=== PATIENT | female | born 1980 | race American Indian/Alaskan Native ===

== ENCOUNTER 2016-08-06 19:56 | Emergency (ER) | payer OTHER, MEDICAID ==
[2016-08-06 20:42] VITALS: BP 108/74
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
[2016-08-06] MEDS ORDERED: NORCO 5/325 PO ONE (23:07)
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
== END 2016-08-07 02:15 | disposition home or self-care (01) ==
LOC: ED 19:56
DX: M54.2 Cervicalgia (principal); R07.89 Other chest pain; R51 Headache; F17.200 Nicotine dependence, unspecified, uncomplicated; V89.2XXA Person injured in unspecified motor-vehicle accident, traffic, initial encounter; Y93.89 Activity, other specified; Y99.9 Unspecified external cause status; Y92.410 Unspecified street and highway as the place of occurrence of the external cause
CPT/HCPCS: 70450; 71020; 72125; 93005; 93010

== ENCOUNTER 2017-09-10 10:38 | Emergency (ER) | payer MEDICAID ==
[2017-09-10] MEDS ORDERED: VERSED IV ONE ×2 (11:05→12:00)
[2017-09-10] MEDS ORDERED: ZOFRAN ONE (11:07)
[2017-09-10] MEDS ORDERED: DILAUDID ONE (11:07)
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
--- NOTE | 2017-09-10 11:50 | XRay Report ---
RIGHT SHOULDER, 1 VIEWS: HISTORY: right shoulder pain. Anterior, inferior dislocation is identified at the right no humeral joint. No obvious fracture or bone lesion. IMPRESSION: Dislocation.
--- NOTE | 2017-09-10 11:54 | XRay Report ---
RIGHT SHOULDER, 1 VIEWS: HISTORY: Postreduction film. The dislocation of the right glenohumeral joint has been reduced since earlier today. No fracture is visualized. IMPRESSION: Anatomic alignment at the right shoulder.
[2017-09-10 19:27] VITALS: BP 104/56
== END 2017-09-10 13:00 | disposition home or self-care (01) ==
LOC: ED 10:38
DX: S43.014A Anterior dislocation of right humerus, initial encounter (principal); G43.909 Migraine, unspecified, not intractable, without status migrainosus; J45.909 Unspecified asthma, uncomplicated; F17.200 Nicotine dependence, unspecified, uncomplicated; X58.XXXA Exposure to other specified factors, initial encounter; Y93.89 Activity, other specified; Y92.89 Other specified places as the place of occurrence of the external cause; Y99.8 Other external cause status
CPT/HCPCS: 23650; 73020; 73030; 96374; 99284; J1170; J2250; J2405

== ENCOUNTER 2018-06-18 06:06 | Emergency (ER) | payer MEDICAID, OTHER ==
[2018-06-18 06:20] VITALS: BP 118/62
[2018-06-18 08:43] LABS: Bilirubin,Urine NEG (Negative); Blood,Urine NEG (Negative); Color,Urine Yellow (Yellow); Mucus,Urine FEW /HPF; Protein,Urine <15 mg/dL mg/dL (Negative); Urobilinogen,Urine < 2.0 mg/dL (<2.0); WBC,Urine < 1.0 /HPF (0.0-6.0)
[2018-06-18 09:09] LABS: HCG Qualitative,Urine Negative (Negative)
[2018-06-18 09:24] LABS: Basophils % (Auto) 0.6 % (0.0-1.8); Eosinophils # (Auto) 0.1 K/mm3 (0.0-0.4); Eosinophils % (Auto) 1.5 % (0.0-4.3); Hematocrit 33.9 % (30.3-42.9); Hemoglobin 10.9 gm/dl (10.1-14.3); Lymphocytes # (Auto) 2.1 K/mm3 (1.2-5.4); Lymphocytes % (Auto) 31.6 % (13.4-35.0); Mean Corpuscular HGB Conc 32 % (30-34); Mean Corpuscular Volume 85 fl (79-97); Monocytes # (Auto) 0.6 K/mm3 (0.0-0.8); Monocytes % (Auto) 9.1 % (0.0-7.3); Platelet Count 252 K/mm3 (140-440); Red Blood Count 3.98 M/mm3 (3.65-5.03); Red Cell Distribution Width 15.1 % (13.2-15.2)
[2018-06-18 09:55] LABS: Alanine Aminotransferase 16 units/L (7-56); Albumin 3.8 g/dL (3.9-5); BUN/Creatinine Ratio 14; Blood Urea Nitrogen 7 mg/dL (7-17); Calcium 8.5 mg/dL (8.4-10.2); Hemolysis Index 28
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
[2018-06-18] MEDS ORDERED: ROCEPHIN IM ONE (10:32)
[2018-06-18] MEDS ORDERED: ZITHROMAX PO ONE (10:32)
--- NOTE | 2018-06-18 11:16 | Ultrasound Report ---
PROCEDURE: US ABDOMEN LIMITED TECHNIQUE: Right upper quadrant abdominal ultrasound performed. HISTORY: RUQ pain COMPARISON: None FINDINGS: No focal liver lesions are seen. There is no intra- or extrahepatic biliary dilatation. The proximal CBD measures 1.4 mm. The gallbladder is normal without cholelithiasis, wall thickening, or pericholecystic fluid. The visualized pancreas is unremarkable. There is no right hydronephrosis. IMPRESSION: There is no significant abnormality identified. This document is electronically signed by Renetta Michel MD., June 18 2018 11:14:34 AM ET
[2018-06-18] MEDS ORDERED: TORADOL IM ONE (11:26)
[2018-06-18] MEDS ORDERED: ZOFRAN ODT PO ONE (11:27)
== END 2018-06-18 12:34 | disposition home or self-care (01) ==
LOC: ED 06:06
DX: N76.0 Acute vaginitis (principal); B96.89 Other specified bacterial agents as the cause of diseases classified elsewhere; J30.2 Other seasonal allergic rhinitis; R10.11 Right upper quadrant pain; R14.1 Gas pain
CPT/HCPCS: 36415; 76705; 80053; 81001; 81025; 85025; 87210; 87591; 96372; 99284; J0696

== ENCOUNTER 2018-12-06 13:31 | Emergency (ER) | payer OTHER ==
[2018-12-06 14:17] VITALS: BP 111/72
--- NOTE | 2018-12-06 14:18 | Event Note ---
ED Screening Note Date of service: 12/06/18 Time: 14:14 ED Screening Note: 38 y o f presents with right ankle pain from sprain few days ago and cp with coughing x 2 days This initial assessment/diagnostic orders/clinical plan/treatment(s) is/are subject to change based on patients health status, clinical progression and re- assessment by fellow clinical providers in the ED. Further treatment and workup at subsequent clinical providers discretion. Patient/guardian urged not to elope from the ED as their condition may be serious if not clinically assessed and managed. Initial orders include: cxr ankle support - hugo wrap
--- NOTE | 2018-12-06 15:01 | XRay Report ---
CHEST 2 VIEWS INDICATION: Chest pain with coughing. COMPARISON: 10/21/2016 report FINDINGS: Support devices: None. Heart: Within normal limits. Lungs/pleura: No acute air space or interstitial disease. No pneumothorax. Additional findings: None. IMPRESSION: No acute findings. Signer Name: Manjit Senior Jr, MD Signed: 12/06/2018 2:56 PM Workstation Name: [id number]
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
== END 2018-12-06 16:44 | disposition home or self-care (01) ==
LOC: ED 13:31
DX: J06.9 Acute upper respiratory infection, unspecified (principal); J45.909 Unspecified asthma, uncomplicated; G43.909 Migraine, unspecified, not intractable, without status migrainosus; F17.200 Nicotine dependence, unspecified, uncomplicated; Z98.51 Tubal ligation status; Z98.890 Other specified postprocedural states; Z79.1 Long term (current) use of non-steroidal anti-inflammatories (NSAID); Z79.899 Other long term (current) drug therapy
CPT/HCPCS: 71046; 99283

== ENCOUNTER 2019-02-06 10:03 | Emergency (ER) | payer OTHER | END 2019-02-06 11:00 | disposition left against medical advice (07) | LOC: ED 10:03 | DX: M79.601 Pain in right arm (principal); Z53.21 Procedure and treatment not carried out due to patient leaving prior to being seen by health care provider ==

== ENCOUNTER 2021-04-04 02:11 | Emergency (ER) | payer OTHER ==
[2021-04-04] MEDS ORDERED: diazePAM 10 MG/2 ML SYRINGE IV ONE (02:31)
[2021-04-04] MEDS ORDERED: LIDOCAINE (1%) 10 MG/1 ML VIAL 20 ML MDV INFILTRATI ONE (02:31)
[2021-04-04] MEDS ORDERED: KETOROLAC 30 MG/1 ML INJ IV ONE (02:31)
[2021-04-04] MEDS ORDERED: HYDROmorphone 1 MG/1 ML INJ IV ONE (02:31)
--- NOTE | 2021-04-04 02:39 | XRay Report ---
RIGHT SHOULDER 2 VIEW(S) INDICATION / CLINICAL INFORMATION: POSSIBLE DISLOCATION COMPARISON: None available. FINDINGS: BONES / JOINT(S): Anterior shoulder dislocation. No acute displaced fracture. No significant arthriti s. SOFT TISSUES: No significant abnormality. ADDITIONAL FINDINGS: None. Signer Name: Chapito Ambriz DO Signed: 04/04/2021 2:35 AM Workstation Name: [id number]
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
[2021-04-04] MEDS ORDERED: ETOMIDATE 20 MG/10 ML INJ IV ONE ×2 (03:00→03:08)
[2021-04-04 04:26] VITALS: BP 111/67
== END 2021-04-04 04:30 | disposition home or self-care (01) ==
LOC: ED 02:11
DX: S43.084A Other dislocation of right shoulder joint, initial encounter (principal); G43.909 Migraine, unspecified, not intractable, without status migrainosus; J45.909 Unspecified asthma, uncomplicated; F17.200 Nicotine dependence, unspecified, uncomplicated; Z79.899 Other long term (current) drug therapy; X58.XXXA Exposure to other specified factors, initial encounter; Y93.89 Activity, other specified; Y92.89 Other specified places as the place of occurrence of the external cause; Y99.8 Other external cause status
CPT/HCPCS: 23650; 73030; 96374; 96375; 99284; J1170; J1885; J3360; J3490